=== PATIENT | male | born 1970 | race American Indian/Alaskan Native ===

== ENCOUNTER 2019-03-08 22:06 | Emergency (ER) | payer MEDICARE ==
[2019-03-08] MEDS ORDERED: IBUPROFEN PO ONE (23:42)
[2019-03-08] MEDS ORDERED: TRIPLE ANTIBIOTIC TP ONE (23:42)
[2019-03-08] MEDS ORDERED: TYLENOL PO ONE (23:42)
[2019-03-08] MEDS ORDERED: BOOSTRIX IM ONE (23:43)
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
[2019-03-09 00:58] VITALS: BP 143/92
== END 2019-03-09 00:53 | disposition home or self-care (01) ==
LOC: ED 22:06
DX: S00.81XA Abrasion of other part of head, initial encounter (principal); F17.200 Nicotine dependence, unspecified, uncomplicated; Z79.899 Other long term (current) drug therapy; Y08.89XA Assault by other specified means, initial encounter; Y93.89 Activity, other specified; Y92.488 Other paved roadways as the place of occurrence of the external cause; Y99.8 Other external cause status
CPT/HCPCS: 90471; 90715; 99282; A6250